=== PATIENT | male | born 1975 ===

== ENCOUNTER 2017-03-24 11:47 | Emergency (ER) | payer OTHER ==
[2017-03-24 11:57] VITALS: RESP 16
[2017-03-24] MEDS ORDERED: Naproxen 500 MG TAB PO ONE ×2 (12:42→13:01)
[2017-03-24 14:03] VITALS: BP 120/78; PULSE 98; TEMP 99.9; O2SAT 98
--- NOTE | 2017-03-24 14:21 | ED PDOC ---
HPI: CCC, URI, Sore Throat Time Seen by Provider: 03/24/17 12:14 Chief Complaint (Nursing): ENT Problem Chief Complaint (Provider): Sore throat History Per: Patient History/Exam Limitations: no limitations Onset/Duration Of Symptoms: Days (x3) Current Symptoms Are (Timing): Still Present Location Of Pain: Throat Associated Symptoms: Sore Throat, Cough (minimal), Other (body aches) Ear Symptoms: Bilateral: None Additional Complaint(s): Devendra Villeda is a 41 year old male, with no significant past medical history, who presents to the emergency department complaining of sore throat associated with body aches and minimal cough onset for x3 days. Patient denies throat swelling, shortness of breath, chest pain, abdominal pain, or hemoptysis. No further medical complaints PMD: None provided. Past Medical History Reviewed: Historical Data, Nursing Documentation, Vital Signs Vital Signs: Last Vital Signs Temp 99.9 F H 03/24/17 14:02 Pulse 98 H 03/24/17 14:02 Resp 16 03/24/17 14:02 BP 120/78 03/24/17 14:02 Pulse Ox 98 03/24/17 14:27 - Medical History PMH: HTN, Hyperlipidemia Denies: Chronic Kidney Disease - Surgical History Surgical History: No Surg Hx - Family History Family History: States: Unknown Family Hx, Hypertension - Social History Current smoker - smoking cessation education provided: No Alcohol: None Drugs: Denies - Home Medications Home Medications: Ambulatory Orders Medication Instructions Recorded Aspirin [Aspirin Chewable] 81 mg PO DAILY #0 chew 10/16/15 Atorvastatin [Lipitor] 40 mg PO DAILY #30 tab 10/16/15 Metoprolol Tartrate [Lopressor] 25 mg PO Q12 #60 tab 10/16/15 Ibuprofen [Motrin] 600 mg PO Q6H PRN #20 tab 10/19/15 Naproxen [Naprosyn] 500 mg PO BID PRN #30 tab 03/24/17 - Allergies Allergies/Adverse Reactions: Allergies Allergy/AdvReac Type Severity Reaction Status Date / Time No Known Allergies Allergy Verified 10/15/15 16:19 Review of Systems ROS Statement: Except As Marked, All Systems Reviewed And Found Negative Constitutional: Positive for: Other (body aches) ENT: Positive for: Throat Pain. Negative for: Throat Swelling Cardiovascular: Negative for: Chest Pain Respiratory: Positive for: Cough (minimal). Negative for: Shortness of Breath, Hemoptysis Gastrointestinal: Negative for: Abdominal Pain Physical Exam - Reviewed Nursing Documentation Reviewed: Yes Vital Signs Reviewed: Yes - Physical Exam Comments: Appears: No acute distress Skin: Normal color, Warm, Dry Eyes: Normal appearance, PERRL, EOMI ENT: Pharyngeal erythema and tonsillar swelling. No tonsillar exudates. TM nonerythematous, non bulging b/l Cardiac: Regular rate and rhythm Lungs: Normal breath sounds, no respiratory distress, no accessory muscle use Abdominal: No tenderness Neuro: Alert, Oriented - ECG O2 Sat by Pulse Oximetry: 98 (RA) Pulse Ox Interpretation: Normal Medical Decision Making Medical Decision Making: Initial Impression: pharyngitis Initial Plan: --Lidocaine 2% Viscous --Naproxen 500 mg PO --Throat culture --Rapid strep group A Antigen --reevaluation ~ Scribe Attestation: Documented by Wali Witt, acting as a scribe for Kevin Nassar PA-C. Provider Scribe Attestation: All medical record entries made by the Scribe were at my direction and personally dictated by me. I have reviewed the chart and agree that the record accurately reflects my personal performance of the history, physical exam, medical decision making, and the department course for this patient. I have also personally directed, reviewed, and agree with the discharge instructions and disposition. Disposition - Clinical Impression Clinical Impression: Pharyngitis - Disposition Disposition: Routine/Home Disposition Time: 14:20 Condition: STABLE Prescriptions: Naproxen [Naprosyn] 500 mg PO BID PRN #30 tab PRN Reason: Pain Instructions: Pharyngitis (ED) Forms: [employer] (Cuban), [employer] ED School/Work Excuse Print Language: TOGOLESE
== END 2017-03-24 14:30 | disposition home or self-care (01) ==
LOC: H.ER 11:47
DX: J02.9 Acute pharyngitis, unspecified (principal); E78.5 Hyperlipidemia, unspecified; I10 Essential (primary) hypertension

== ENCOUNTER 2017-06-01 13:07 | Emergency (ER) | payer OTHER ==
[2017-06-01 13:18] VITALS: BP 152/96; PULSE 92; RESP 18; TEMP 98.8; O2SAT 99
--- NOTE | 2017-06-01 13:43 | ED PDOC ---
HPI: Skin/Bite Injury Time Seen by Provider: 06/01/17 13:22 Chief Complaint (Nursing): Abnormal Skin Integrity Chief Complaint (Provider): Abnormal Skin Integrity History Per: Patient History/Exam Limitations: no limitations Onset/Duration Of Symptoms: Days (x2 days) Current Symptoms Are (Timing): Still Present Location Of Injury: Left: Back Additional Complaint(s): Patient complains of a painful small "ball" that he had on left upper back since 2 years but since past three days has increased in size. Reports that he started squeezing it and a thick curd like material was expressed. Otherwise: ( -) foreign body, (-) fever, (-) chills (-) trauma. Past Medical History Reviewed: Historical Data, Nursing Documentation, Vital Signs Vital Signs: Last Vital Signs Temp 98.8 F 06/01/17 13:15 Pulse 92 H 06/01/17 13:15 Resp 18 06/01/17 13:15 BP 152/96 H 06/01/17 13:15 Pulse Ox 99 06/01/17 15:14 - Medical History PMH: HTN, Hyperlipidemia Denies: Chronic Kidney Disease - Surgical History Surgical History: No Surg Hx - Family History Family History: States: Unknown Family Hx, Hypertension - Social History Current smoker - smoking cessation education provided: Yes (Never Smoked) Alcohol: None Drugs: Denies - Home Medications Home Medications: Ambulatory Orders Medication Instructions Recorded Aspirin [Aspirin Chewable] 81 mg PO DAILY #0 chew 10/16/15 Atorvastatin [Lipitor] 40 mg PO DAILY #30 tab 10/16/15 Metoprolol Tartrate [Lopressor] 25 mg PO Q12 #60 tab 10/16/15 Ibuprofen [Motrin] 600 mg PO Q6H PRN #20 tab 10/19/15 Naproxen [Naprosyn] 500 mg PO BID PRN #30 tab 03/24/17 Cephalexin [Keflex] 500 mg PO Q6 #28 capsule 06/01/17 - Allergies Allergies/Adverse Reactions: Allergies Allergy/AdvReac Type Severity Reaction Status Date / Time No Known Allergies Allergy Verified 10/15/15 16:19 Review of Systems ROS Statement: Except As Marked, All Systems Reviewed And Found Negative (A sper HPI, otherwise negative) Constitutional: Negative for: Fever, Chills Skin: Positive for: Other (Abscess on left upper back) Physical Exam - Reviewed Nursing Documentation Reviewed: Yes Vital Signs Reviewed: Yes - Physical Exam Comments: GENERAL APPEARANCE: Patient is awake, alert, oriented x 3, in mild painful distress. Skin: warm and dry, +2 x 2 cm slightly mobile mass with no erythema, no tenderness and no edema, no surrounding cellulitis. Pulmonary: lungs clear, no rhonchi, no wheezing. Cardiac: regular rate and rhythm, no murmur, no gallop. Extremities: no deformity, full range of motion, no tenderness. - ECG O2 Sat by Pulse Oximetry: 99 (RA) Pulse Ox Interpretation: Normal Medical Decision Making Medical Decision Making: Time: 13:35 Clinical Impression: epidermoid cyst Diagnosis explained to patient. Patient advised to follow up with the clinic or dermatology referral for further evaluation and possible removal of cyst. However there is no emergent treatment that needs to be provided here in the emergency room. Patient verbalized understanding of diagnosis and instructions. Scribe Attestation: Documented by Giorgi Mckeon acting as a scribe for PA. BERTHA Cannon PA-C Scribe Attestation: All medical record entries made by the Scribe were at my direction and personally dictated by me. I have reviewed the chart and agree that the record accurately reflects my personal performance of the history, physical exam, medical decision making, and the department course for this patient. I have also personally directed, reviewed, and agree with the discharge instructions and disposition. Disposition - Clinical Impression Clinical Impression: Epidermoid cyst - Patient ED Disposition Is Patient to be Admitted: No Counseled Patient/Family Regarding: Diagnosis, Need For Followup, Rx Given - Disposition Referrals: [facility] [Outside] Adrian Marie MD [Staff Provider] - Disposition: Routine/Home Disposition Time: 13:35 Condition: STABLE Additional Instructions: Thank you for letting us take care of you today. You were treated for epidermoid cyst. The emergency medical care you received today was directed at your acute symptoms. If you were prescribed any medication, please fill it and take as directed. It may take several days for your symptoms to resolve. Return to the Emergency Department if your symptoms worsen, do not improve, or if you have any other problems. Please call one of the physicians/clinics you have been referred to that are listed on the Patient Visit Information form that is included in your discharge packet. Bring any paperwork you were given at discharge with you along with any medications you are taking to your follow up visit. Our treatment cannot replace ongoing medical care by a primary care provider (PCP) outside of the emergency department. Thank you for allowing the [facility] team to be part of your care today. Prescriptions: Cephalexin [Keflex] 500 mg PO Q6 #28 capsule Instructions: Epidermal Cyst (DC) Forms: [employer] (Lithuanian) Print Language: SLOVENIAN - PA / WAITER/WAITRESS / Resident Statement MD/DO has reviewed & agrees with the documentation as recorded.
== END 2017-06-01 13:58 | disposition home or self-care (01) ==
LOC: H.ER 13:07
DX: L72.0 Epidermal cyst (principal); E78.5 Hyperlipidemia, unspecified; I10 Essential (primary) hypertension; Z79.82 Long term (current) use of aspirin

== ENCOUNTER 2017-12-02 00:47 | Inpatient (IN) | payer OTHER ==
[2017-12-02] MEDS ORDERED: Iohexol 240 (50 ml) PO ONE (01:28)
[2017-12-02] MEDS ORDERED: Iohexol 240 (50 ml) ONE (01:56)
[2017-12-02 02:21] LABS: BASO # 0.1 K/uL (0.0-0.2); BASO % 0.4 % (0.0-2.0); EOS % 0.1 % (0.0-4.0); HEMOGLOBIN 15.9 g/dL (12.0-18.0); LYMPH # 0.9 K/uL (1.0-4.3); MEAN CELL VOLUME 78.9 fl (80.0-94.0); MEAN CORPUSCULAR HEMOGLOBIN 27.5 pg (27.0-31.0); MEAN CORPUSCULAR HGB CONC 34.9 g/dL (33.0-37.0); MEAN PLATELET VOLUME 9.9 fl (7.2-11.7); MONO # 0.7 K/uL (0.0-0.8); MONO % 4.1 % (0.0-10.0); NEUT # 15.9 K/uL (1.8-7.0); NEUT % 90.4 % (50.0-75.0); PLATELET COUNT 169 K/uL (130-400); RBC 5.79 Mil/uL (4.40-5.90); WHITE BLOOD COUNT 17.6 K/uL (4.8-10.8)
[2017-12-02 02:27] LABS: URINE AMORPHOUS SEDIMENT RARE /ul (<OCC); URINE BACTERIA RARE (<OCC); URINE BILIRUBIN NEGATIVE (NEGATIVE); URINE BLOOD SMALL (NEGATIVE); URINE CLARITY SLIGHTY-CLOUDY (Clear); URINE COLOR YELLOW (YELLOW); URINE GLUCOSE (UA) NEG (Normal); URINE LEUKOCYTE ESTERASE NEG Leu/uL (Negative); URINE PROTEIN 30 mg/dL (NEGATIVE); URINE UROBILINOGEN 0.2-1.0 mg/dL (0.2-1.0)
[2017-12-02 02:37] LABS: BLOOD UREA NITROGEN 12 mg/dl (9-20); CALCIUM 9.5 mg/dL (8.4-10.2); GFR NON-AFRICAN AMERICAN > 60; LIPASE 55 U/L (23-300)
[2017-12-02 03:09] LABS: BANDS 1 % (0-2); EOSINOPHIL 1 % (0-7); LYMPHOCYTE 7 % (20-50); MONOCYTE 8 % (0-10); NEUTROPHIL 83 % (42-75); PLATELET ESTIMATE NORMAL (NORMAL); TOTAL CELLS COUNTED 100
[2017-12-02 03:10] LABS: LARGE PLATELETS PRESENT
[2017-12-02 03:11] LABS: ANISOCYTOSIS SLIGHT; OVALOCYTES SLIGHT; POIKILOCYTOSIS SLIGHT
--- NOTE | 2017-12-02 03:15 | ED PDOC ---
HPI: Abdomen Time Seen by Provider: 12/02/17 01:21 Chief Complaint (Nursing): Abdominal Pain Chief Complaint (Provider): Abdominal Pain History Per: Patient, Skinner Pelts (Ruiz [id number], Trevor) History/Exam Limitations: no limitations Onset/Duration Of Symptoms: Days Current Symptoms Are (Timing): Still Present Location Of Pain/Discomfort: Diffuse Quality Of Discomfort: "Pain" Associated Symptoms: denies: Fever, Vomiting, Diarrhea, Urinary Symptoms Additional Complaint(s): 42 year old male presents to the ER for an evaluation of abdominal pain onset 7PM. At 7pm patient attempted to have a bowel movement but he could not. He denies nausea, vomiting, urinary symptoms, abdominal surgeries or fever. Denies any medical issues, no surgeries, takes no medications. PMD: No Family Provider Past Medical History Reviewed: Historical Data, Nursing Documentation, Vital Signs Vital Signs: Last Vital Signs Temp 97.9 F 12/02/17 01:01 Pulse 97 H 12/02/17 01:01 Resp 18 12/02/17 01:01 BP 163/94 H 12/02/17 01:01 Pulse Ox 100 12/02/17 01:01 - Medical History PMH: HTN, Hyperlipidemia Denies: Chronic Kidney Disease - Family History Family History: States: Unknown Family Hx, Hypertension - Social History Current smoker - smoking cessation education provided: No Alcohol: None Drugs: Denies - Home Medications Home Medications: Ambulatory Orders Medication Instructions Recorded Aspirin [Aspirin Chewable] 81 mg PO DAILY #0 chew 10/16/15 Atorvastatin [Lipitor] 40 mg PO DAILY #30 tab 10/16/15 Metoprolol Tartrate [Lopressor] 25 mg PO Q12 #60 tab 10/16/15 Ibuprofen [Motrin] 600 mg PO Q6H PRN #20 tab 10/19/15 Naproxen [Naprosyn] 500 mg PO BID PRN #30 tab 03/24/17 Cephalexin [Keflex] 500 mg PO Q6 #28 capsule 06/01/17 - Allergies Allergies/Adverse Reactions: Allergies Allergy/AdvReac Type Severity Reaction Status Date / Time No Known Allergies Allergy Verified 10/15/15 16:19 Review of Systems ROS Statement: Except As Marked, All Systems Reviewed And Found Negative Constitutional: Negative for: Fever Gastrointestinal: Positive for: Abdominal Pain. Negative for: Nausea, Vomiting Genitourinary Male: Negative for: Dysuria, Frequency, Incontinence Physical Exam - Reviewed Nursing Documentation Reviewed: Yes Vital Signs Reviewed: Yes - Physical Exam Appears: Positive for: Uncomfortable Head Exam: Positive for: ATRAUMATIC, NORMAL INSPECTION, NORMOCEPHALIC Skin: Positive for: Normal Color, Warm, Dry Eye Exam: Positive for: EOMI, Normal appearance, PERRL ENT: Positive for: Normal ENT Inspection Neck: Positive for: Normal, Painless ROM, Supple. Negative for: Decreased ROM Cardiovascular/Chest: Positive for: Regular Rate, Rhythm. Negative for: Murmur Respiratory: Positive for: Normal Breath Sounds. Negative for: Decreased Breath Sounds, Wheezing, Respiratory Distress Gastrointestinal/Abdominal: Positive for: Tenderness (diffuse tenderness to palpation). Negative for: Guarding, Rebound Back: Positive for: Normal Inspection. Negative for: L CVA Tenderness, R CVA Tenderness Extremity: Positive for: Normal ROM. Negative for: Tenderness, Pedal Edema, Deformity Neurologic/Psych: Positive for: Alert, Oriented (x3). Negative for: Motor/Sensory Deficits - Laboratory Results Result Diagrams: 12/02/17 02:10 12/02/17 02:10 - ECG O2 Sat by Pulse Oximetry: 100 (RA) Pulse Ox Interpretation: Normal Medical Decision Making Medical Decision Making: Time: 012 Initial Impression: 42 year old male with undifferentiated abdominal pain Differential Diagnosis includes but not limited to: colitis vs diverticulitis vs abdominal pain vs gas vs others not listed Initial Plan: --Abdomen & Pelvis PO & IV Contrast --BMP --Lipase --Enulose 20gm --Omnipaque 240(50ml) --Toradol 30mg --Urinalysis --Reevaluation 630AM --Patient has acute uncomplitacted appendicitis --Case discussed with operating room surgical technologist Dr. Gordon for Dr. Al Scribe Attestation: Documented by Mauli Maniar acting as a scribe for Jagdish Jackson MD Provider Scribe Attestation: All medical record entries made by the Scribe were at my direction and personally dictated by me. I have reviewed the chart and agree that the record accurately reflects my personal performance of the history, physical exam, medical decision making, and the department course for this patient. I have also personally directed, reviewed, and agree with the discharge instructions and disposition. Disposition - Clinical Impression Clinical Impression: Appendicitis - Disposition Disposition Time: 07:05 Condition: FAIR
[2017-12-02] MEDS ORDERED: Iohexol 300 100 ML IJ ONE (04:28)
[2017-12-02] MEDS ORDERED: Sodium Chloride 0.9% 50 ML IV ONE (04:29)
[2017-12-02] MEDS ORDERED: Sodium Chloride 0.9% 1,000 ML IV STA (06:10)
[2017-12-02] MEDS ORDERED: Piperacillin/Tazobact 3.375 GM in Sodium Chloride 0.9% 100 ML IVPB STA (06:11)
[2017-12-02] MEDS ORDERED: Piperacillin/Tazobact 3.375 gm Inj IVPB ONE (06:30)
[2017-12-02] MEDS ORDERED: Lactated Ringer's 1,000 ML IV SCH (10:15)
--- NOTE | 2017-12-02 12:04 | CP.PCM.HP ---
History of Present Illness - History of Present Illness History of Present Illness: Surgery: Dr. Al Pt is a 42M with PMHx significant for HLD who presented to [facility] with abdominal pain x 1 day. Pt states his pain started yesterday evening around 6:30pm and was generalized over his whole abdomen. He also had 2 episodes of non-bilious, non- bloody vomiting so he decided to come to the ER. States he has never had this pain in the past and denies associated fevers/chills. In the ER, pt had a CT abdomen/pelvis which shows dilated appendix. Surgery called to evaluate. Pt currently resting comfortably in bed and states his pain is well controlled. He admits to one more episode of vomiting in the ER. Denies fevers/chills, chest pain or SOB. PMHx: HLD PSHx: denies SocialHx: denies smoking, social EtOH, denies drugs NKDA Present on Admission - Present on Admission Any Indicators Present on Admission: No Review of Systems - Review of Systems All systems: reviewed and no additional remarkable complaints except (as per HPI) Past Patient History - Infectious Disease Hx of Infectious Diseases: None - Tetanus Immunizations Tetanus Immunization: Unknown - Past Medical History & Family History Past Medical History?: No - Past Social History Smoking Status: Never Smoked Alcohol: Social Drugs: Denies - CARDIAC Hx Hypercholesterolemia: Yes - PULMONARY Hx Respiratory Disorders: No - NEUROLOGICAL Hx Neurological Disorder: No - HEENT Hx HEENT Problems: No - RENAL Hx Chronic Kidney Disease: No - ENDOCRINE/METABOLIC Hx Endocrine Disorders: No - HEMATOLOGICAL/ONCOLOGICAL Hx Blood Disorders: No - INTEGUMENTARY Hx Dermatological Problems: No - MUSCULOSKELETAL/RHEUMATOLOGICAL Hx Falls: No - GASTROINTESTINAL Hx Gastrointestinal Disorders: No - GENITOURINARY/GYNECOLOGICAL Hx Genitourinary Disorders: No - PSYCHIATRIC Hx Psychophysiologic Disorder: No Hx Substance Use: No - SURGICAL HISTORY Hx Surgeries: No - ANESTHESIA Hx Anesthesia: No Meds Allergies/Adverse Reactions: Allergies Allergy/AdvReac Type Severity Reaction Status Date / Time No Known Allergies Allergy Verified 10/15/15 16:19 Physical Exam - Constitutional Appears: Well, No Acute Distress - Head Exam Head Exam: ATRAUMATIC, NORMOCEPHALIC - Eye Exam Eye Exam: Normal appearance - ENT Exam ENT Exam: Mucous Membranes Moist - Respiratory Exam Respiratory Exam: NORMAL BREATHING PATTERN - Cardiovascular Exam Cardiovascular Exam: RRR - GI/Abdominal Exam GI & Abdominal Exam: Tenderness (RLQ radiating to the LLQ ). absent: Distended, Guarding, Rebound - Extremities Exam Extremities exam: Negative for: calf tenderness - Neurological Exam Neurological exam: Alert, Oriented x3 - Skin Skin Exam: Dry, Warm Results - Vital Signs Recent Vital Signs: Last Vital Signs Temp 99.4 F 12/02/17 08:30 Pulse 90 12/02/17 08:30 Resp 20 12/02/17 09:36 BP 131/88 12/02/17 08:30 Pulse Ox 99 12/02/17 08:30 - Labs Result Diagrams: 12/02/17 02:10 12/02/17 02:10 Labs: Laboratory Results - last 24 hr 12/02/17 12/02/17 12/02/17 02:00 02:10 02:10 WBC 17.6 H D RBC 5.79 Hgb 15.9 Hct 45.7 MCV 78.9 L D MCH 27.5 MCHC 34.9 RDW 14.0 Plt Count 169 MPV 9.9 Neut % (Auto) 90.4 H Lymph % (Auto) 5.0 L [place] % (Auto) 4.1 Eos % (Auto) 0.1 Baso % (Auto) 0.4 Neut # (Auto) 15.9 H Lymph # (Auto) 0.9 L [place] # (Auto) 0.7 Eos # (Auto) 0.0 Baso # (Auto) 0.1 Neutrophils % (Manual) 83 H Band Neutrophils % 1 Lymphocytes % (Manual) 7 L Monocytes % (Manual) 8 Eosinophils % (Manual) 1 Platelet Estimate Normal Large Platelets Present Poikilocytosis (manual Slight Anisocytosis (manual) Slight Ovalocytes Slight Sodium 136 Potassium 4.0 Chloride 99 Carbon Dioxide 23 Anion Gap 18 BUN 12 Creatinine 0.7 L Est GFR ( Amer) > 60 Est GFR (Non-Af Amer) > 60 Random Glucose 138 H Calcium 9.5 Lipase 55 Urine Color Yellow Urine Clarity Slighty-cloudy Urine pH 8.0 Ur Specific [place] 1.019 Urine Protein 30 Urine Glucose (UA) Neg Urine Ketones Trace Urine Blood Small Urine Nitrate Negative Urine Bilirubin Negative Urine Urobilinogen 0.2-1.0 Ur Leukocyte Esterase Neg Urine RBC (Auto) 11 H Urine Microscopic WBC 1 Amorphous Sediment Rare H Urine Bacteria Rare - Imaging and Cardiology CT scan - abdomen Status: Image reviewed by me Assessment & Plan - Assessment and Plan (Free Text) Assessment: 42M with abdominal pain, r/o appendicitis Plan: - OR for lap appy - Keep NPO - IVF, IV ABX - d/w Dr. Servando Sánchez
[2017-12-02] MEDS ORDERED: Rocuronium 10 mg/ml (5 ml) ONE (12:55)
[2017-12-02] MEDS ORDERED: Succinylcholine 200 mg/10 ml Inj IV ONE (12:55)
[2017-12-02] MEDS ORDERED: Lidocaine 4% (Laryng-O-Jet) Kit MM ONE (12:55)
[2017-12-02] MEDS ORDERED: ePHEDrine 50 mg/ml Inj ONE (12:55)
[2017-12-02] MEDS ORDERED: Propofol 10 mg/ml Inj (20 ML) ONE ×2 (12:55→14:29)
[2017-12-02] MEDS ORDERED: Midazolam 2 MG/2 ML VIAL ONE (12:55)
--- NOTE | 2017-12-02 12:55 | CT ---
Date of service: 12/02/2017 PROCEDURE: CT Abdomen and Pelvis with contrast HISTORY: diffuse abd pain COMPARISON: None. TECHNIQUE: Contrast dose: 95 mL Omnipaque 300 Radiation dose: Total exam DLP = 756.58 mGy-cm. This CT exam was performed using one or more of the following dose reduction techniques: Automated exposure control, adjustment of the mA and/or kV according to patient size, and/or use of iterative reconstruction technique. FINDINGS: LOWER THORAX: Unremarkable. LIVER: Hepatic steatosis. No gross lesion or ductal dilatation. GALLBLADDER AND BILE DUCTS: Unremarkable. PANCREAS: Unremarkable. No gross lesion or ductal dilatation. SPLEEN: Unremarkable. ADRENALS: Unremarkable. No mass. KIDNEYS AND URETERS: Unremarkable. No hydronephrosis. No solid mass. VASCULATURE: Unremarkable. No aortic aneurysm. BOWEL: Unremarkable. No obstruction. No gross mural thickening. APPENDIX: The appendix is elongated and slightly dilated compatible with a mild acute/subacute appendicitis. Closer to the cecal base there is either rimmed contrast and/or trace rim enhancement and/or low-density calcification rimmed present (axis series 2, image 66. No perforation obstruction or abscess here noted. Continued clinical follow-up recommended. There is contiguous moderate stool in the medial cecum PERITONEUM: Unremarkable. No free fluid. No free air. LYMPH NODES: Unremarkable. No enlarged lymph nodes. BLADDER: Unremarkable. REPRODUCTIVE: Unremarkable. BONES: Bilateral L5 spondylolysis without spondylolisthesis. Bilateral L5-S1 facet mild arthrosis OTHER FINDINGS: The gastric fundus is moderately distended with oral contrast. The upper body not distended-however there is contrast seen throughout the more distal small large bowel loops and this appearance of the stomach is most compatible with prominent peristalsis here. IMPRESSION: Acute/subacute appendicitis without complicating perforation, abscess here or contiguous obstruction. Continued clinical follow-up recommended. Other findings as above. Concordant results (preliminary interpretation) provided by [email or web address].
[2017-12-02] MEDS ORDERED: ceFAZolin IV 1 gm in Dextrose 0 GM/0 ML BAG IVPB ONE (13:06)
[2017-12-02] MEDS ORDERED: Lactated Ringer's 1,000 ML IV ONE ×4 (13:58→16:35)
[2017-12-02] MEDS ORDERED: Dexamethasone 4 mg/1 ml ONE (14:06)
[2017-12-02] MEDS ORDERED: Neostigmine 1:1000 (1 mg/ml) Inj ONE (14:25)
[2017-12-02] MEDS ORDERED: HYDROmorphone 0.5 mg/0.5 ml ISec IVP PRN (15:02)
--- NOTE | 2017-12-02 15:03 | PCM.SURG1 ---
Surgeon's Initial Post Op Note - Surgeon's Notes Surgeon: Dr. Al General Sales Manager: Dr. West PGY-4 Type of Anesthesia: General Endo Pre-Operative Diagnosis: Acute appendicitis Operative Findings: Acute appendicitis Post-Operative Diagnosis: Acute appendicitis Operation Performed: Laparoscopic appendectomy Specimen/Specimens Removed: appendix Estimated Blood Loss: EBL {In ML}: 20 Blood Products Given: N/A Drains Used: No Drains Post-Op Condition: Fair Date of Surgery/Procedure: 12/02/17 Time of Surgery/Procedure: 15:03
[2017-12-02] MEDS: Piperacillin/Tazobact 3.375 GM in Sodium Chloride 0.9% 100 ML IVPB SCH ×2 (17:11→21:35)
[2017-12-03] MEDS: Lactated Ringer's 1,000 ML IV SCH ×2 (03:19)
[2017-12-03] MEDS: Piperacillin/Tazobact 3.375 GM in Sodium Chloride 0.9% 100 ML IVPB SCH (03:53)
[2017-12-03 06:11] LABS: BASO % 0.1 % (0.0-2.0); LYMPH # 1.3 K/uL (1.0-4.3); LYMPH % 10.3 % (20.0-40.0); MEAN CELL VOLUME 80.9 fl (80.0-94.0); MEAN CORPUSCULAR HEMOGLOBIN 26.9 pg (27.0-31.0); MEAN CORPUSCULAR HGB CONC 33.3 g/dL (33.0-37.0); MEAN PLATELET VOLUME 10.1 fl (7.2-11.7); MONO # 0.7 K/uL (0.0-0.8); MONO % 5.5 % (0.0-10.0); NEUT # 10.7 K/uL (1.8-7.0); NEUT % 84.1 % (50.0-75.0); RBC 4.81 Mil/uL (4.40-5.90); RED CELL DISTRIBUTION WIDTH 14.2 % (11.5-14.5); WHITE BLOOD COUNT 12.8 K/uL (4.8-10.8)
[2017-12-03 06:45] LABS: BLOOD UREA NITROGEN 18 mg/dl (9-20); CALCIUM 8.7 mg/dL (8.4-10.2); GFR NON-AFRICAN AMERICAN > 60
--- NOTE | 2017-12-03 08:01 | CP.PCM.DIS ---
Provider - Provider Date of Admission: 12/02/17 06:10 Attending physician: Bonita Al MD Consults: none Time Spent in preparation of Discharge (in minutes): 30 Diagnosis - Discharge Diagnosis (1) Appendicitis Status: Resolved Hospital Course - Lab Results Lab Results: Micro Results 12/02/17 06:15 Blood-Venous Blood Culture - Preliminary NO GROWTH AFTER 24 HOURS 12/02/17 06:30 Blood-Venous Blood Culture - Preliminary NO GROWTH AFTER 24 HOURS Most Recent Lab Values WBC 12.8 K/uL (4.8-10.8) H 12/03/17 05:30 RBC 4.81 Mil/uL (4.40-5.90) 12/03/17 05:30 Hgb 13.0 g/dL (12.0-18.0) D 12/03/17 05:30 Hct 38.9 % (35.0-51.0) 12/03/17 05:30 MCV 80.9 fl (80.0-94.0) D 12/03/17 05:30 MCH 26.9 pg (27.0-31.0) L 12/03/17 05:30 MCHC 33.3 g/dL (33.0-37.0) 12/03/17 05:30 RDW 14.2 % (11.5-14.5) 12/03/17 05:30 Plt Count 168 K/uL (130-400) 12/03/17 05:30 MPV 10.1 fl (7.2-11.7) 12/03/17 05:30 Neut % (Auto) 84.1 % (50.0-75.0) H 12/03/17 05:30 Lymph % (Auto) 10.3 % (20.0-40.0) L 12/03/17 05:30 [place] % (Auto) 5.5 % (0.0-10.0) 12/03/17 05:30 Eos % (Auto) 0.0 % (0.0-4.0) 12/03/17 05:30 Baso % (Auto) 0.1 % (0.0-2.0) 12/03/17 05:30 Neut # (Auto) 10.7 K/uL (1.8-7.0) H 12/03/17 05:30 Lymph # (Auto) 1.3 K/uL (1.0-4.3) 12/03/17 05:30 [place] # (Auto) 0.7 K/uL (0.0-0.8) 12/03/17 05:30 Eos # (Auto) 0.0 K/uL (0.0-0.7) 12/03/17 05:30 Baso # (Auto) 0.0 K/uL (0.0-0.2) 12/03/17 05:30 Neutrophils % (Manual) 83 % (42-75) H 12/02/17 02:10 Band Neutrophils % 1 % (0-2) 12/02/17 02:10 Lymphocytes % (Manual) 7 % (20-50) L 12/02/17 02:10 Monocytes % (Manual) 8 % (0-10) 12/02/17 02:10 Eosinophils % (Manual) 1 % (0-7) 12/02/17 02:10 Platelet Estimate Normal (NORMAL) 12/02/17 02:10 Large Platelets Present 12/02/17 02:10 Poikilocytosis (manual Slight 12/02/17 02:10 Anisocytosis (manual) Slight 12/02/17 02:10 Ovalocytes Slight 12/02/17 02:10 Sodium 139 mmol/l (132-148) 12/03/17 05:30 Potassium 4.1 MMOL/L (3.6-5.0) 12/03/17 05:30 Chloride 104 mmol/L (98-107) 12/03/17 05:30 Carbon Dioxide 27 mmol/L (22-30) 12/03/17 05:30 Anion Gap 12 (10-20) 12/03/17 05:30 BUN 18 mg/dl (9-20) 12/03/17 05:30 Creatinine 1.0 mg/dl (0.8-1.5) 12/03/17 05:30 Est GFR ( Amer) > 60 12/03/17 05:30 Est GFR (Non-Af Amer) > 60 12/03/17 05:30 Random Glucose 123 mg/dL (75-110) H 12/03/17 05:30 Calcium 8.7 mg/dL (8.4-10.2) 12/03/17 05:30 Lipase 55 U/L (23-300) 12/02/17 02:10 Urine Color Yellow (YELLOW) 12/02/17 02:00 Urine Clarity Slighty-cloudy (Clear) 12/02/17 02:00 Urine pH 8.0 (5.0-8.0) 12/02/17 02:00 Ur Specific [place] 1.019 (1.003-1.030) 12/02/17 02:00 Urine Protein 30 mg/dL (NEGATIVE) 12/02/17 02:00 Urine Glucose (UA) Neg mg/dL (Normal) 12/02/17 02:00 Urine Ketones Trace mg/dL (NEGATIVE) 12/02/17 02:00 Urine Blood Small (NEGATIVE) 12/02/17 02:00 Urine Nitrate Negative (NEGATIVE) 12/02/17 02:00 Urine Bilirubin Negative (NEGATIVE) 12/02/17 02:00 Urine Urobilinogen 0.2-1.0 mg/dL (0.2-1.0) 12/02/17 02:00 Ur Leukocyte Esterase Neg [place]/uL (Negative) 12/02/17 02:00 Urine RBC (Auto) 11 /hpf (0-3) H 12/02/17 02:00 Urine Microscopic WBC 1 /hpf (0-5) 12/02/17 02:00 Amorphous Sediment Rare /ul (<OCC) H 12/02/17 02:00 Urine Bacteria Rare (<OCC) 12/02/17 02:00 - Hospital Course Hospital Course: 42M with PMHx significant for HLD, HTN who presented to [facility] with abdominal pain x 1 day. He also had 2 episodes of non-bilious, non-bloody vomiting. In the ER, pt was found to have leukocytosis of WBC 17.[address] abdomen/pelvis showed acute appendicitis. He was taken to the OR later that day on 12/02 for laparoscopic appendectomy. On POD#1, he was tolerating diet, ambulating, voiding, minimal pain. He was discharged home with instructions to follow up with Dr. Al in 1-2 weeks. Discharge Exam - Head Exam Head Exam: ATRAUMATIC, NORMOCEPHALIC - Respiratory Exam Respiratory Exam: NORMAL BREATHING PATTERN. absent: Respiratory Distress - Cardiovascular Exam Cardiovascular Exam: +S1, +S2 - GI/Abdominal Exam GI & Abdominal Exam: Soft, Tenderness (mild tenderness at laparoscopic incision sites). absent: Distended, Firm, Guarding, Rebound, Rigid Additional comments: Dermabond in place over laparoscopic incision sites - Neurological Exam Neurological exam: Alert, CN II-XII Intact, Oriented x3 - Psychiatric Exam Psychiatric exam: Normal Affect, Normal Mood - Skin Skin Exam: Dry, Normal Color, Warm Discharge Plan - Follow Up Plan Condition: GOOD Disposition: HOME/ ROUTINE Patient education suggested?: Yes Instructions: Appendicitis in Adults, Appendectomy, Laparoscopic Surgery (DC) Additional Instructions: Follow up with Dr. Al in her office in 1-2 weeks, call to make appointment Avoid heavy lifting for 4 weeks May shower but do not take a bath or swim for 2 weeks [address]ond in place, it will fall off on its own over time May take Advil or Motrin (ibuprofen) or Tylenol (acetaminophen) PRN pain Referrals: Bonita Al MD [Staff Provider] -
[2017-12-03 08:21] VITALS: BP 121/74; PULSE 80; RESP 20; TEMP 97.7; O2SAT 93
--- NOTE | 2017-12-15 08:29 | OP ---
PROCEDURE DATE: 12/02/2017 SURGEON: Bonita Al MD SWEAT BAND SEWER: Lo West DO ANESTHESIA: General. ANESTHESIOLOGIST: Susan Kenny MD PREOPERATIVE DIAGNOSIS: Acute appendicitis. POSTOPERATIVE DIAGNOSIS: Acute appendicitis. PROCEDURE: Laparoscopic appendectomy. DESCRIPTION OF OPERATION: With the patient in the supine position under adequate general anesthesia, the abdomen was prepped and draped in the usual sterile manner. A Veress needle puncture was performed at the umbilicus with insufflation to 15 cm water pressure of CO2 and a 10 mm laparoscopic trocar was inserted via an infraumbilical incision. Under direct vision, 5 and 12 mm trocars were inserted in the left lower quadrant. The appendix was visualized. It was markedly dilated and acutely inflamed and adherent to underlying omentum and the small bowel mesentery. The appendix was gently freed from these attachments and elevated, and the mesoappendix was dissected and then windowed. The mesoappendix was divided using the Endo-ROSCOE stapler. The appendix itself was then also divided using the Endo-ROSCOE stapler. The stump was examined for hemostasis. The appendix was placed in a specimen retrieval bag and removed via the 12 mm port site. The right lower quadrant was irrigated and suctioned. Pneumoperitoneum was released and the trocars were removed. The 12 mm port site was closed with a fascial [id number] suture of 0 Vicryl. All incisions were closed with 4-0 Monocryl and Dermabond. The patient tolerated the procedure well and was transferred to the recovery room in stable condition. Estimated blood loss for the procedure was 20 mL. Bonita Al MD
== END 2017-12-03 10:07 | disposition home or self-care (01) | DRG 883 ==
LOC: H.ER 00:47 → H.ERHOLD 06:10 → H.MEDSURG1 09:15
PROVIDERS: ADMIT Specialist; ATTEND Specialist
PROC: 0DTJ4ZZ Resection of Appendix, Percutaneous Endoscopic Approach (ICD-10-PCS; principal; 2017-12-02 16:30)
DX: K35.80 Unspecified acute appendicitis (principal); I10 Essential (primary) hypertension; E78.5 Hyperlipidemia, unspecified; E78.00 Pure hypercholesterolemia, unspecified